=== PATIENT | female | born 1965 | race Caucasian/White ===

== ENCOUNTER 2025-08-14 20:17 | Emergency (ER) | payer MEDICARE, OTHER ==
[~2025-08-14] VITALS: Ht 154.9 cm; Wt 68.2 kg
[2025-08-14 20:20] VITALS: TEMP 97.7
[2025-08-14 22:25] LABS: PLATELET COUNT (AUTO) 321 K/uL (150-450); RED BLOOD CELL COUNT(AUTO) 3.54 MIL/uL (4.00-5.20); RED CELL DISTRIBUTION WIDTH 14.8 % (11.5-14.5); WHITE BLOOD COUNT (AUTO) 4.8 K/uL (4.5-11.0)
[2025-08-14 22:31] LABS: CALCIUM, TOTAL 8.5 mg/dL (8.8-10.5); CREATININE 1.12 mg/dL (0.60-1.30); GLOMERULAR FILTR. RATE CALC 49 mL/min (>60); GLUCOSE,RANDOM 96 mg/dL (70-110); SODIUM SERUM 139 mmol/L (136-145); UREA NITROGEN, BLOOD 12 mg/dL (7-18)
[2025-08-14 22:37] LABS: ASPARTATE AMINOTRANSFERASE 15.0 U/L (15-37); TOTAL PROTEIN, SERUM 6.4 g/dL (6.4-8.2)
[2025-08-14 22:42] LABS: TROPONIN I-HIGH SENSITIVITY 6 ng/L (<51)
[2025-08-14] MEDS ORDERED: IOHEXOL 350 MG/ML 100 ML VIAL ONE (22:58)
[2025-08-14] MEDS ORDERED: SODIUM CHLORIDE 0.9% 100 ML ONE (22:59)
[2025-08-14] MEDS: SODIUM CHLORIDE 0.9% 1,000 ML IV ONE (23:13)
[2025-08-14] MEDS: ONDANSETRON HCL 4 MG/2 ML VIAL IVP ONE (23:21)
[2025-08-14 23:45] VITALS: BP 139/92; PULSE 82; RESP 15; O2SAT 100
[2025-08-15] MEDS: KETOROLAC TROMETHAMINE 15 MG/ML VIAL IVP ONE (00:14)
[2025-08-15] MEDS ORDERED: KETOROLAC TROMETHAMINE 30 MG/ML VIAL IVP ONE (00:15)
[2025-08-15] MEDS ORDERED: ONDA-104 PO (00:47)
[2025-08-15] MEDS ORDERED: LOPE-232 PO (00:48)
== END 2025-08-15 01:55 | disposition home or self-care (01) ==
LOC: EMS 20:17
DX: K52.9 Noninfective gastroenteritis and colitis, unspecified (principal); R19.5 Other fecal abnormalities; Z90.710 Acquired absence of both cervix and uterus; Z88.5 Allergy status to narcotic agent; Z90.89 Acquired absence of other organs
CPT/HCPCS: 99285; 74177; 96374; 96361; 96375; 80048; 80076; 83690; 84484; 85025; 36415; 96376; Q9967; J1171 ×2; J2405; J7030; J7050; 93005; J1885